=== PATIENT | female | born 1975 | race Caucasian/White ===

== ENCOUNTER 2016-08-31 17:30 | Inpatient (IN) | payer OTHER ==
[2016-08-31] MEDS ORDERED: IBUPROFEN 600 MG TAB PO PRN (17:57)
[2016-08-31] MEDS ORDERED: LIDOCAINE 1% 30 ML SDV SC PRN (17:57)
[2016-08-31] MEDS ORDERED: EPSOM SALT 454 GM TP PRN (17:57)
[2016-08-31] MEDS ORDERED: TERBUTALINE SULFATE 1 MG/ML VIAL IV PRN (17:57)
[2016-08-31] MEDS ORDERED: MINERAL OIL 60 ML OIL TP PRN (17:57)
[2016-08-31] MEDS ORDERED: LR 1,000 ML IV PRN (17:57)
[2016-08-31] MEDS ORDERED: OXYTOCIN/RINGERS LACTATE 1,000 ML IV PRN (17:57)
--- NOTE | 2016-08-31 18:02 | OBPROG ---
OBG Progress Note Assessment/Plan: Assessment: cat 2 fhr variables iv iv fluids to assist with labor and resusitation pain well controled doing well with breathing and focusing exam 5-6/80/-1 cephalic contractions q2-3 minutes gbs negative desires natural Plan:expectant management of labor 08/31/16 18:00 Subjective: I am having contractions q 2 minutes. Srom 0800 clear fluid noted. GBS negative - SVE Dilation (cm): 5 Effacement (%): 80 Station: -1 Current Contraction Pattern: Regular FHR (bpm): 135 FHR Pattern Variability: Moderate FHR Category: 1 Membranes: SROM Amniotic Fluid Color: Clear - Physical Exam General Appearance: WD/WN, alert, no apparent distress Respiratory: lungs clear, normal breath sounds Cardiac/Chest: regular rate, rhythm Abdomen: normal bowel sounds Membranes: SROM Amniotic Fluid Color: clear Extremities: normal range of motion, Lakhwinder's sign (negtive bilaterally) DTR- Lower Extremities: Knee (R): 1+, Knee (L): 1+ Skin: normal color, warm/dry Neuro/Psych: no motor/sensory deficits, alert, normal mood/affect, oriented x 3 ICD10 Worksheet Patient Problems: Problems Problem Status Diagnosed PROM LABOR TERM Acute
[2016-08-31] MEDS ORDERED: AMMONIA AROMATIC 1 EACH AMP IH ONE (18:17)
[2016-08-31] MEDS ORDERED: TERBUTALINE SULFATE 1 MG/ML VIAL ONE (18:17)
[2016-08-31] MEDS ORDERED: LIDOCAINE 1% 30 ML SDV ONE (18:17)
[2016-08-31] MEDS ORDERED: MISOPROSTOL 200 MCG TAB ONE (18:18)
[2016-08-31 18:57] LABS: ADD DIFF? YES; ADD MORPH? NO; ADD SCAN? NO; ATYPICAL LYMPHOCYTE FLAG 0 (0-99); FRAGMENT RBC FLAG 0 (0-99); HEMATOCRIT 34.4 % (38.0-47.0); HEMOGLOBIN 12.4 g/dL (12.6-16.3); LEFT SHIFT FLG 20 (0-99); LIPEMIA HEMOLYSIS FLAG 90 (0-99); MEAN CELL HEMOGLOBIN 32.9 pg (27.9-34.1); MEAN CELL VOLUME 91.2 fL (81.5-99.8); MEAN PLATELET VOLUME 10.5 fL (8.7-11.7); PLATELET CLUMPS FLAG 0 (0-99); PLATELET COUNT 210 10^3/uL (150-400); RED BLOOD CELL COUNT 3.77 10^6/uL (4.18-5.33); RED CELL DISTRIBUTION WIDTH 13.7 % (11.5-15.2)
[2016-08-31 19:27] LABS: PLATELET ESTIMATE ADEQUATE (ADEQ)
[2016-08-31 19:28] LABS: ACANTHOCYTES 1+; ECHINOCYTES 1+; GIANT PLATELETS PRESENT
--- NOTE | 2016-08-31 20:01 | GHP ---
[f rep st] HISTORY AND PHYSICAL DATE OF ADMISSION: 08/31/2016 HISTORY OF PRESENT ILLNESS: The patient is a 41-year-old 2, para 0, A1, living 0, with an ED C of 08/30/2016 at 40-1/7 weeks, who comes in tonight at 5:30 on 08/31/2015 with a complaint of ruptu re of membranes at 8 o'clock on 08/31/2015. PAST MEDICAL HISTORY: The patient had mumps at the age of 13. Conceived spontaneously. Was trying for 2 years. The patient has had a history of arrhythmia and heart racing. Workup was negative. Br [place] biopsy was negative. The patient is gluten free. The patient is AMA and has a Miller mosaicism history, as well as hypothyroidism that she takes levothyroxine for. GYNECOLOGICAL HISTORY: OCPs and condoms. No abnormal Paps. FAMILY HISTORY: Mother has had breast cancer. The patient has had BRCA testing. HISTORY: Previous chemical treated with methotrexate in 2006. The patient has r eceived care through [facility] since the beginning of the . LABORATORY WORK: The patient is O-positive. Antibody negative. RPR is nonreactive. Rubella is imm une. Hepatitis is negative. HIV is negative. Trio screen was negative. Pap was within normal limi ts. Gonorrhea and chlamydia were negative. Verify was negative. One-hour GTT was within normal donohue its. The patient had an amnio, 46XY, and all of that was within normal limits. ALLERGIES: The patient is allergic to aspirin. The patient is also allergic to Synthroid which caus es vomiting. MEDICATIONS: The patient is not taking levothyroxine. She is on 60 mg of [place] Thyroid, vitamin D, vitamins, and DHA. ASSESSMENT: The patient is awake, alert, and oriented x3. Lungs are clear bilaterally. Bowel sound s are positive in all 4 quadrants. Contractions are anywhere from 2-5 minutes apart. The patient's exam was 5-6 cm, 80% effaced, -1 station, cephalic. The patient is GBS negative. /[id number]/MODL
[2016-08-31] MEDS ORDERED: BUPIVACAINE 0.25% 30 ML SDV ONE (20:04)
[2016-08-31] MEDS ORDERED: PHENYLEPHRINE HCL 100 MCG/ML SYR ONE (20:04)
[2016-08-31] MEDS ORDERED: fentaNYL 2MCG/ML/BUP 0.1% RTU 100 ML BAG EP ONE (20:04)
[2016-08-31] MEDS ORDERED: fentaNYL 100 MCG/2 ML INJ ONE (20:06)
[2016-08-31] MEDS ORDERED: ONDANSETRON 4 MG/2 ML VIAL IVP PRN (20:52)
[2016-08-31] MEDS ORDERED: PHENYLEPHRINE HCL 100 MCG/ML SYR IVP PRN (20:52)
[2016-08-31] MEDS ORDERED: NALOXONE HCL 0.4 MG/ML INJ IVP PRN (20:52)
[2016-08-31] MEDS ORDERED: fentaNYL 2MCG/ML/BUP 0.1% RTU 100 ML EP SCH (21:00)
[2016-08-31] MEDS ORDERED: LR 500 ML IV SCH (21:00)
--- NOTE | 2016-08-31 23:19 | OBPROG ---
OBG Progress Note Assessment/Plan: Assessment:2099 cat 2 occasional variables requesting epidural for pain relief exam 7/80/-1 cephalic contractions q2-3 minutes gbs negative desires natural Plan:expectant management of labor 08/31/16 18:00 08/31/16 23:16 08/31/16 23:18 Subjective: requesting epidural for pain relief. Has tried multiple positions. Tub , having greater difficulty coping through the pain Objective: 08/31/16 18:33 Patient ABO/Rh O POSITIVE 08/31/16 18:33 Current Contraction Pattern: Regular FHR (bpm): 135 FHR Pattern Variability: Moderate FHR Category: 2 Amniotic Fluid Color: Clear, Blood Tinged ICD10 Worksheet Patient Problems: Problems Problem Status Diagnosed PROM LABOR TERM Acute
--- NOTE | 2016-08-31 23:22 | OBPROG ---
OBG Progress Note Assessment/Plan: [id number] cat 2 occasional variables epidural working well for pain relief minimal change in cervix iupc placed pitocin per protocol contractions not adequete ot presentation epidural crawl position to allow for optimal positioning exam 7/100/-1 cephalic contractions q2-5 minutes gbs negative educated r/b/a pitocin and iupc admitted pituitary adenoma history/ benign Plan:expectant management of labor 08/31/16 18:00 08/31/16 23:16 08/31/16 23:18 08/31/16 23:19 Subjective: pain well managed with epidural Objective: 08/31/16 18:33 Patient ABO/Rh O POSITIVE 08/31/16 18:33 - SVE Dilation (cm): 7 Effacement (%): 100 Station: -1 FHR Pattern Variability: Moderate FHR Category: 1 Amniotic Fluid Color: Blood Tinged ICD10 Worksheet Patient Problems: Problems Problem Status Diagnosed PROM LABOR TERM Acute
[2016-08-31] MEDS ORDERED: OXYTOCIN/RINGERS LACTATE 500 ML IV SCH (23:30)
[2016-09-01] MEDS ORDERED: CALCIUM CARBONATE 500 MG CHEWABLE TAB PO PRN (01:06)
--- NOTE | 2016-09-01 01:06 | OBPROG ---
OBG Progress Note Assessment/Plan: [id number] cat 1 epidural working well for pain relief change in cervix iupc 155 mvu not adequete pitocin per protocol at 4 mu ot presentation peanut ball exam 9/100/0 cephalic contractions q2-5 minutes gbs negative changing positions frequently Plan:expectant management of labor 08/31/16 18:00 08/31/16 23:16 08/31/16 23:18 08/31/16 23:19 09/01/16 01:03 Subjective: Doing well denies pain. Changing positions frequently Objective: 08/31/16 18:33 Patient ABO/Rh O POSITIVE 08/31/16 18:33 - SVE Dilation (cm): 9 Effacement (%): 100 Station: 0 Current Contraction Pattern: Regular FHR (bpm): 135 FHR Pattern Variability: Moderate FHR Category: 1 Membranes: SROM Amniotic Fluid Color: Clear ICD10 Worksheet Patient Problems: Problems Problem Status Diagnosed PROM LABOR TERM Acute
[2016-09-01] MEDS ORDERED: ACETAMINOPHEN 500 MG TAB PO ONE (04:00)
--- NOTE | 2016-09-01 04:15 | OBPROG ---
OBG Progress Note Assessment/Plan: [id number] cat 1 epidural working well for pain relief change in cervix iupc 155-185 mvu not adequete pitocin per protocol at 6 mu exam 10/100/+1 cephalic contractions q2-5 minutes gbs negative changing positions frequently 37.9-38.3 temp Plan:expectant management of labor 08/31/16 18:00 08/31/16 23:16 08/31/16 23:18 08/31/16 23:19 09/01/16 01:03 09/01/16 04:14 Subjective: Continuing to feel comfortable. Objective: 08/31/16 18:33 Patient ABO/Rh O POSITIVE 08/31/16 18:33 - SVE Dilation (cm): 10 Effacement (%): 100 Station: +1 Current Contraction Pattern: Regular FHR (bpm): 145 FHR Pattern Variability: Moderate FHR Category: 1 Membranes: SROM Amniotic Fluid Color: Clear, Blood Tinged ICD10 Worksheet Patient Problems: Problems Problem Status Diagnosed PROM LABOR TERM Acute
[2016-09-01] MEDS ORDERED: HEMABATE 250 MCG/1 ML AMP IM ONE (05:21)
[2016-09-01] MEDS ORDERED: HYDROCODONE/APAP 5/325 TAB PO PRN (08:50)
[2016-09-01] MEDS ORDERED: SIMETHICONE 80 MG TAB CHEW PO PRN (08:50)
[2016-09-01] MEDS ORDERED: HYDROCORTISONE 0.5% CREAM TP PRN (08:50)
[2016-09-01] MEDS ORDERED: ACETAMINOPHEN 325 MG TAB PO PRN (08:50)
[2016-09-01] MEDS ORDERED: DOCUSATE SODIUM 100 MG CAP PO PRN (08:50)
--- NOTE | 2016-09-01 08:55 | OBPROC ---
- Labor and Delivery Onset of Contractions Date: 08/31/16 Onset of Contractions Time: 16:00 Onset of Contractions Type: Augmented Rupture of Membranes Date: 09/01/16 Rupture of Membranes Time: 08:00 Rupture of Membranes Type: Spontaneous Amniotic Fluid Color: Clear Dilation Complete Time: 04:15 Delivery Type: Spontaneous Placenta Delivery Date: 09/01/16 Placenta Delivery Time: 08:33 EBL: 350 Complications: Nuchal Cord - Medications Labor Augmentation/Induction Meds Used: Pitocin Anesthesia: Epidural - Info A Delivery Date: 09/01/16 Delivery Time: 08:24 Sex of : Male Score (1 Min): 7 Score (5 Min): 9
[2016-09-01] MEDS ORDERED: IBUPROFEN 600 MG TAB PO PRN (21:08)
[2016-09-01] MEDS ORDERED: IBUPROFEN 200 MG TAB PO PRN (21:13)
[2016-09-02 00:43] VITALS: RESP 16
--- NOTE | 2016-09-02 06:37 | SOAPPROG ---
SOAP Progress Note Assessment/Plan: Assessment: 41 yo p1 ppd# 1 s/p breast feeding O+ Plan: routine post care 09/02/16 06:35 Subjective: patient is doing well. was up most of the night working on breast feeding. normal lochia. denies headache and changes in vision. ambulating. passing gas. Objective: Vital Signs Temp Pulse Resp BP Pulse Ox 36.6 C 99 16 105/58 L 97 09/01/16 23:30 09/01/16 23:30 09/01/16 23:30 09/01/16 23:30 09/01/16 16:30 Laboratory Results 08/31/16 18:33 Physical Exam - Physical Exam General Appearance: WD/WN, alert, no apparent distress Respiratory: chest non-tender, lungs clear, normal breath sounds Cardiac/Chest: normal peripheral pulses, regular rate, rhythm Abdomen: normal bowel sounds, non-tender, soft, other (fundus firm and non tender) Skin: normal color, warm/dry Extremities: normal range of motion, non-tender, normal inspection, normal capillary refill Neuro/Psych: no motor/sensory deficits, alert, normal mood/affect, oriented x 3 ICD10 Worksheet Patient Problems: Problems Problem Status Diagnosed PROM LABOR TERM Acute
[2016-09-02] MEDS: IRON POLYSAC/IRON HEME 28 MG TAB PO SCH (09:40)
[2016-09-02 19:43] VITALS: O2SAT 95
--- NOTE | 2016-09-03 10:10 | SOAPPROG ---
SOAP Progress Note Assessment/Plan: Assessment pain well managed well some soreness with discussed ff@u scant rubra lochia perineum sore intact Plan:discharge to home with instructions fu 6 weeks in the office, depression, contraception, ss infection, pericare, rest, pelvic rest, driving, verbalized understanding of all of above 08/31/16 18:00 08/31/16 23:16 08/31/16 23:18 08/31/16 23:19 09/01/16 01:03 09/01/16 04:14 09/03/16 10:07 Objective: Vital Signs Temp Pulse Resp BP Pulse Ox 36.6 C 93 16 104/62 95 09/02/16 19:43 09/02/16 19:43 09/02/16 19:43 09/02/16 19:43 09/02/16 19:43 Laboratory Results 08/31/16 18:33 - Time Spent With Patient Time Spent With Patient: 15 minutes - Pending Discharge Pending Discharge Date: 09/03/16 Pending Discharge Time: 11:00 Physical Exam - Physical Exam General Appearance: WD/WN, alert, no apparent distress Abdomen: other (ff@u) Pelvic Exam: vaginal bleeding (scant rubra lochia) Skin: normal color, warm/dry Extremities: normal range of motion, Lakhwinder's sign (negative bilaterally) Neuro/Psych: no motor/sensory deficits, alert, normal mood/affect, oriented x 3 ICD10 Worksheet Patient Problems: Problems Problem Status Diagnosed PROM LABOR TERM Acute
[2016-09-03] MEDS: IRON POLYSAC/IRON HEME 28 MG TAB PO SCH (11:24)
[2016-09-03 11:28] VITALS: BP 111/72; PULSE 96; TEMP 98.3
== END 2016-09-03 18:45 | disposition home or self-care (01) | DRG 775 ==
LOC: FLD 17:30 → FOB 09-01 13:18
PROVIDERS: ADMIT Advanced Practice Midwife; ATTEND Advanced Practice Midwife
PROC: 0UQMXZZ Repair Vulva, External Approach (ICD-10-PCS; principal; 2016-09-01)
PROC: 10E0XZZ Delivery of Products of Conception, External Approach (ICD-10-PCS; principal; 2016-09-01)
DX: O66.0 Obstructed labor due to shoulder dystocia (principal); O69.9XX0 Labor and delivery complicated by cord complication, unspecified, not applicable or unspecified; O09.523 Supervision of elderly multigravida, third trimester; O70.0 First degree perineal laceration during delivery; O99.283 Endocrine, nutritional and metabolic diseases complicating pregnancy, third trimester; E03.9 Hypothyroidism, unspecified; Z3A.40 40 weeks gestation of pregnancy; Z80.3 Family history of malignant neoplasm of breast; Z37.0 Single live birth
CPT/HCPCS: G0463; J2370; J2590; J3010; J3105

== ENCOUNTER → 2016-10-09 | Outpatient (CLI) | payer OTHER | LOC: FLACT 13:15 | PROVIDERS: ATTEND Obstetrics & Gynecology | DX: O92.79 Other disorders of lactation (principal) | CPT/HCPCS: G0463 ==

== ENCOUNTER → 2016-10-11 | Outpatient (CLI) | payer OTHER | LOC: FIMAGING 15:17 | PROVIDERS: ATTEND Obstetrics & Gynecology | DX: N61.0 Mastitis without abscess (principal) ==

== ENCOUNTER → 2016-10-16 | Outpatient (CLI) | payer OTHER | LOC: FLACT 13:08 | PROVIDERS: ATTEND Obstetrics & Gynecology | DX: O92.79 Other disorders of lactation (principal); N61.0 Mastitis without abscess | CPT/HCPCS: G0463 ==

== ENCOUNTER → 2017-04-30 | Outpatient (CLI) | payer OTHER | LOC: FLACT 13:20 | PROVIDERS: ATTEND Advanced Practice Midwife | DX: O92.5 Suppressed lactation (principal) | CPT/HCPCS: G0463 ==